=== PATIENT | female | born 1985 | race Caucasian/White ===

== ENCOUNTER 2022-04-23 12:53 | Outpatient (CLI) | payer OTHER, SELFPAY ==
--- NOTE | 2022-04-23 13:00 | CRLHL7_ITS ---
For Patients: As a result of the Cures Act, medical imaging exams and procedure reports are released immediately into your electronic medical record. You may view this report before your referring provider. If you have questions, please contact your health care provider. INDICATION: First trimester scan, establish dates. COMPARISON: None. TECHNIQUE: Real-time pruett-scale imaging of the pelvis was performed. FINDINGS: Sonographic imaging demonstrates a single living intrauterine gestation. The embryo demonstrates a regular cardiac rate measuring 173 beats per minute. The embryo`s crown-rump length measurement of 2.4 cm corresponds to a gestational age of 9 weeks 1 day with a sonographic due date of 11/25/2022. There is a normal-appearing yolk sac. There are no gross abnormalities noted within the embryo at this early state of development. The gestational sac has a normal appearance. There is a 2.7 x 1.7 x 2.9 cm lower uterine segment perigestational hemorrhage. The amount of fluid within the sac appears appropriate for gestational age. The cervix is closed. The myometrium appears normal. The ovaries are of normal size. Simple anechoic cyst right ovary measuring 2.9 x 2.3 x 2.7 cm there are no suspicious fluid collections noted in the cul-de-sac. IMPRESSION: Single living intrauterine with sonographic gestational age 9 weeks 1 day and sonographic due date of 11/25/2022. Lower uterine segment subchorionic hemorrhage measuring 2.7 x 1.7 x 2.9 cm. Dictated by Flex Davis MD @ 04/23/2022 1:53:20 PM (Electronically Signed)
== END 2022-04-23 12:54 | disposition home or self-care (01) ==
LOC: US 12:55
PROVIDERS: PCP Obstetrics & Gynecology; Visit Provider Physician Assistant
DX: Z34.91 Encounter for supervision of normal pregnancy, unspecified, first trimester (principal)
CPT/HCPCS: 76817; 86592; 86703; 86762; 86803; 86850; 86900; 86901; 87086; 87340; 87491; 87591

== ENCOUNTER 2022-07-14 12:47 | Outpatient (CLI) | payer OTHER, SELFPAY ==
--- OUTSIDE RECORDS SUMMARY | 2022-07-14 12:50 | XMS_ITS | Clinical Summary ---
:1985 Author Organization [employer] [facility] [place] [address] Care Team Providers Name Role Phone Pcp, No Primary Care Provider Unavailable Allergies No known active allergies Medications Medication Sig Dispensed Refills Start Date End Date Status RECLIPSEN, 28, 0.15-0.03 TAKE 1 TABLET BY 84 tablet 0 03/22/20 16 Active mg tabletIndications: MOUTH DAILY Contraception Active Problems No known active problems Encounters Date Type Specialty Care Team Description 04/26/2022 Lab Requisition Sultana Guillaume PA-C from Last 3 Months Immunizations Name Administration Dates Next Due Human Papilloma Virus Vaccine 02/14/2014, 01/04/2013, 2011 Td (Age >=7 Years) 11/17/1999 Tdap 12/18/2009 Family History Medical History Relation Name Comments Good Health Father Good Health Mother Diabetes Other GRANDPARENT Heart Disease Other GRANDPARENT Hypertension Other GRANDPARENT Relation Name Status Comments Father Mother Other Social History Tobacco Use Types Packs/Day Years Used Date Smoking Tobacco: Never Smokeless Tobacco: Never Tobacco Cessation: Counseling Given: Yes Alcohol Use Standard Drinks/Week Comments Yes 0 (1 standard drink = 0.6 oz pure alcoho l) rarely Sex Assigned at Date Recorded Not on file Obstetrics History Para Term AB IAB SAB Ectopic Multiple Living Live Births 0 0 0 0 0 0 0 0 0 0 Last Filed Vital Signs Vital Sign Reading Time Taken Comments Blood Pressure 120/74 02/20/2015 4:29 PM CDT tower Pulse 77 02/20/2015 4:29 PM CDT Temperature - - Respiratory Rate - - Oxygen Saturation 99% 02/20/2015 4:29 PM CDT Inhaled Oxygen Concentration - - Weight 60.1 kg (132 lb 9.6 oz) 02/20/2015 4:29 PM CDT Height 151.5 cm (4' 11.65) 02/20/2015 4:29 PM CDT Body Mass Index 26.2 02/20/2015 4:29 PM CDT Plan of Treatment Health Maintenance Due Date Last Done Comments COVID-19 vaccine series (#1) 03/01/1988 Depression screening for age 12+ 1999 HIV for age 15-65 2002 BMI (ht and wt on same day) for 2005 age 18+ Hepatitis C screening for age 0209/01/2005 18-79 Tetanus booster 12/19/2019 12/18/2009, 11/17/1999 Influenza for age 9-49 04/01/2022 Pap test for age 21-65 04/23/2025 04/23/2022, 04/23/2022, 08/26/2017, Additional history exists Tdap Completed 12/18/2009 Procedures Procedure Name Priority Date/Time Associated Diagnosis Comme nts LAB TRACKING EVENT Routine 04/23/2022 2:30 PM CDT [employer] THIN PREP PAP Routine 04/23/2022 2:30 PM Resu lts for this SCREEN IMAGED CDT procedure are in the results section. HPV THIN PREP Routine 04/23/2022 2:30 PM Results for this CDT procedure are i n the results section. from Last 3 Months Results LAB TRACKING EVENT (04/23/2022 2:30 PM CDT) Specimen Anatomical Collection Method Collection Time Receive d Time (Source) Location / / Volume Laterality Other (Other) Client Collect / 04/23/2022 2:30 PM 04/02 5:46 Unknown CDT PM CDT October Aundrea [facility] BILL ONLY Performing Organization Address City/State/ZIP Code Phon e Number [employer] [address] [place] [address] LABORATORY-CENTRAL 1999 LABORATORY [employer] THIN PREP PAP SCREEN IMAGED (04/23/2022 2:30 PM CDT) Component Value Ref Test Analysis Performed At [facility] Range Method Time Signature Case Report Gynecologic Cytology Report ? Case: [id number] ? 05/13/2022 ELISABET Authorizing Provider: ??Sultana Kapoor PA-C ?Collected: ? 04/23/2022 1430 ? 1:36 PM HEALTH Ordering Location: ? [facility] ?Received: ?04/27/2022 0823 ? CDT [place] NEO-C First Screen: ? Cassius Sarabia ? ENTRAL Rescreen: ?Lillian Lisa ? LABORATORY Specimen: ?[employer] ThinPrep Vial Screening, Cervical ? INTERPRETATION NEGATIVE FOR (none) 05/13/2022 [facility] E lectronically /RESULT INTRAEPITHELIAL 1:36 PM HEALTH sign ed by [facility]ESION OR CDT LABORATORY-C Lillian Lisa on MALIGNANCY (NIL) ENTRAL at LABORATORY 1:36 PM SPECIMEN Satisfactory for evaluation 05/13/2022 [facility] ADEQUACY No endocervical component seen in a patient 1:36 PM HEALTH CDT LABORATORY-C ENTRAL LABORATORY HPV REQUEST HPV and PAP 05/13/2022 [facility] 1:36 PM HEALTH CDT LABORATORY-C ENTRAL LABORATORY Date of LMP 02/22/2022 05/13/2022 [facility] 1:36 PM HEALTH CDT LABORATORY-C ENTRAL LABORATORY Last Pap Date 08/26/2017 05/13/2022 [facility] 1:36 PM HEALTH CDT LABORATORY-C ENTRAL LABORATORY Last Pap NIL 05/13/2022 [facility] Result 1:36 PM HEALTH CDT LABORATORY-C ENTRAL LABORATORY Abnormal Pap No 05/13/2022 [facility] or [place] B[facility] in 1:36 PM HEALTH last 5 years CDT LABORATORY-C ENTRAL LABORATORY Menstrual 05/13/2022 [facility] Status 1:36 PM HEALTH CDT LABORATORY-C ENTRAL LABORATORY [place] B[place] Done No 05/13/2022 [facility] Today 1:36 PM HEALTH CDT LABORATORY-C ENTRAL LABORATORY Additional 05/13/2022 [facility] Information 1:36 PM HEALTH CDT LABORATORY-C ENTRAL LABORATORY Comment: Interpreted at [facility], Central Laboratory - [address], [place] [address] Automated Review Successful 05/13/2022 1:36 PM CDT [facility] LABORATORY-CENTRAL L ABORATORY Comment: Specimen processed successfully by automated investigation division captain device, [employer]Prep Imaging System, [employer] ANCILLARY TESTING HPV Ordered, 05/13/2022 1:36 PM [facility] INSPECTOR [employer] COMMODITIES Please see CDT LABORATORY-CENTRAL separate report LABORATORY Note The pap test is a 05/13/2022 1:36 PM [facility] screening CDT LABORATORY-CENTRAL technique, not a LABORATORY diagnostic procedure. It is used primarily to screen for squamous cancers and precursor lesions. Published studies have shown that it is subject to both false negative and false positive results. The pap test should not be used as the sole means to diagnose or exclude pre-malignant and malignant lesions. Specimen Anatomical Collection Method Collection Time Receive d Time (Source) Location / / Volume Laterality Other (Cervical) 04/23/2022 2:30 PM 04/27 8:23 CDT AM CDT Sultana L Aundrea [facility] Performing Organization Address City/State/ZIP Code Phon e Number [facility] [address] [place] [address] LABORATORY-CENTRAL 2000 LABORATORY HPV HIGH RISK (04/23/2022 2:30 PM CDT) Analysis Performed At Patho logist Time Signature TYPE 16 Negative Negative 04/28/2022 [facility] 2:07 PM CDT LABORATORY-[place] TRAL LABORATORY TYPE 18 Negative Negative 04/28/2022 [facility] 2:07 PM CDT LABORATORY-[place] TR[place] LABORATORY OTHER HIGH Negative Negative 04/28/2022 [facility] RISK TYPES 2:07 PM CDT LABORATORY-[place] TR[place] LABORATORY Specimen Anatomical Collection Method Collection Time Receive d Time (Source) Location / / Volume Laterality Other (Cervical) 04/23/2022 2:30 PM 04/27 8:23 CDT AM CDT Narrative [facility] LABORATORY-CENTRAL LABORAT ORY - 04/28/2022 2:07 PM CDT HPV types 16, 18, 31, 33, 35, 39, 45, 51, 52, 56, 58, 59, 66 and 68 DNA were undetectable or below the pre-set threshold. Methodology: Brenda Dalia 4800 HPV Test October Aundrea [facility] Performing Organization Address City/State/ZIP Code Phon e Number [facility] [address] [place] [address] LABORATORY-CENTRAL 2000 LABORATORY from Last 3 Months Care Teams Operations Program Manager Relationship Specialty Start Date End Date Pcp, No PCP - General 07/07/18 .
== END 2022-07-14 12:48 | disposition home or self-care (01) ==
LOC: US 12:48
PROVIDERS: PCP Obstetrics & Gynecology; Visit Provider Pediatrics Neonatal-Perinatal Medicine
DX: O09.522 Supervision of elderly multigravida, second trimester (principal); Z3A.20 20 weeks gestation of pregnancy
CPT/HCPCS: 76811

== ENCOUNTER 2022-08-25 18:05 | Outpatient (CLI) | payer OTHER, SELFPAY ==
[2022-08-25 18:13] VITALS: BP 133/91; PULSE 130; RESP 18; TEMP 36.7; O2SAT 99; BMI 35.9
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
[2022-08-25 20:02] VITALS: BP 130/70; PULSE 97
[2022-08-25 23:36] VITALS: BP 130/70; PULSE 97; RESP 18; TEMP 36.8
== END 2022-08-25 23:10 | disposition home or self-care (01) ==
LOC: ED 19:48 → OB OUT 19:49 → OB 19:50
PROVIDERS: Emergency Provider Emergency Medicine Emergency Medical Services; PCP Obstetrics & Gynecology; Visit Provider Obstetrics & Gynecology
DX: Z34.92 Encounter for supervision of normal pregnancy, unspecified, second trimester (principal); Z3A.26 26 weeks gestation of pregnancy
CPT/HCPCS: 59025; 99213; 99284

== ENCOUNTER 2022-09-06 15:49 | Outpatient (CLI) | payer OTHER, SELFPAY ==
[2022-09-08 00:33] LABS: Rapid Plasma Reagin (RPR) Non Reactive (Non Reactive)
== END 2022-09-06 15:50 | disposition home or self-care (01) ==
PROVIDERS: PCP Obstetrics & Gynecology; Visit Provider Obstetrics & Gynecology
DX: Z34.93 Encounter for supervision of normal pregnancy, unspecified, third trimester (principal); Z3A.28 28 weeks gestation of pregnancy
CPT/HCPCS: 86592

== ENCOUNTER 2022-11-04 08:55 | Outpatient (CLI) | payer OTHER, SELFPAY ==
[2022-11-05 11:50] LABS: Strep B DNA Probe NEGATIVE (Negative)
[2022-11-05 16:21] LABS: Strep B Pen/Amox Allergy No
== END 2022-11-04 08:56 | disposition home or self-care (01) ==
PROVIDERS: PCP Obstetrics & Gynecology; Visit Provider Obstetrics & Gynecology
DX: Z34.93 Encounter for supervision of normal pregnancy, unspecified, third trimester (principal); Z3A.36 36 weeks gestation of pregnancy
CPT/HCPCS: 87081; 87653

== ENCOUNTER 2022-11-22 05:13 | Inpatient (IN) | payer OTHER, SELFPAY ==
[2022-11-22] VITALS (32 sets, daily range): BP systolic 105–136; BP diastolic 54–80; PULSE 68–108; RESP 15–18; TEMP 36.4–37.2; O2SAT 95–99; BMI 40.0
[2022-11-22] MEDS: LACTATED RINGERS 1000 ML 1,000 ML 1200 ML IV (05:57)
[2022-11-22 06:35] LABS: SARS PCR* Negative SARS-CoV-2 (Negative)
[2022-11-22] MEDS: LACTATED RINGERS 1000 ML 1,000 ML 125 ML IV ×2 (06:38→11:10)
--- NOTE | 2022-11-22 07:18 | PM.PROC ---
Procedure Note Time Seen by Provider: 07:18 Date Seen: 11/22/22 Date of procedure: 11/22/22 Will [facility] bill your pro fee for this procedure?: Yes Procedure: Preoperative diagnosis: 37-year-old 3 para 2001 at 39 and 0/7 weeks admitted for a 1. Scheduled repeat low transverse section. 2. Undesired fertility Postoperative diagnosis: Same Procedure: Repeat low-transverse section. Bilateral Salpingectomy Anesthesia: Spinal,TAPS block Surgeon: Verna Dominguez MD Cardiovascular Technician: Not applicable Quantitative blood loss: 590 mL IVF: 1700 mL UOP: 200 mL, clear urine at the end of the procedure Drain(s): Calhoun to gravity Specimen: Right and left fallopian tubes to pathology Findings: A live female infant was delivered from the direct OA position at 7:51 a.m.. Apgars were 9 at 1 min and 9 at 5 min., respectively. Infant weight: Pending. Nuchal cord(s): Yes: Loose nuchal cord easily reduced at the surgical site prior to delivery of the infant's shoulders. The placenta was delivered spontaneously and complete at 7:53 a.m.. Amniotic fluid: Clear. Normal uterus, fallopian tubes and ovaries were noted. Other findings: Thick adhesion of the rectus abdominus muscle to the anterior upper uterus that was doubly clamped, divided and suture-ligated. Procedure: Su was taken to the OR where spinal anesthetic was found be adequate. A Calhoun catheter was placed. The patient was then placed in the dorsal supine position with a leftward tilt. She was then prepped and draped in a normal sterile manner. A Pfannenstiel skin incision was made and carried through sharply to the underlying layer of fascia. Fascia was incised in the midline and this incision carried laterally with Ricks scissors. The superior aspect of fascial incision was grasped with Tomer clamps, tented up, and the rectus muscles dissected off minimally with a combination of blunt and sharp dissection. The inferior aspect of the fascial incision was not dissected off the rectus muscles. The rectus muscles were in the midline. The peritoneum was entered sharply. This opening was extended in layers with Ricks scissors with good visualization of the bladder. The thick adhesion of the rectus abdominus muscle to the anterior upper portion of the uterus was identified, doubly clamped with Ele clamps, divided and ligated with 0 Vicryl free ties. An Berry-O self-retaining retractor was placed. A bladder flap was not created. Uterus was incised in a low transverse manner in the midline. This incision carried laterally with blunt pressure on the inferior and superior aspects of the uterine incision. The amniotic sac was ruptured. The infant's head and body was delivered atraumatically. The was shown to the patient and her support person, then handed to waiting nursing staff. The placenta was delivered spontaneously. The uterus was cleared of clots and debris. The uterine incision was re-approximated with the uterus in vivo. The 1st layer using 0-Vicryl in a running, locked manner. The 2nd layer using 0-Monocryl in a running, vertical, imbricating layer. Additional sutures needed for hemostasis: Yes: 1 figure of 8 suture using 2-0 chromic was placed. Attention was then turned to performing the bilateral salpingectomy. The uterus was exteriorized to visualize fallopian tubes and ovaries.The right fallopian tube was identified, grasped with 2 Crocheron clamps and followed to the fimbriated end of the fallopian tube. The hand-held LigaSure dissecting forceps was used to remove the fallopian tube from the cornua and broad ligament by sequential pedicles. The pedicles were started at the fimbriated end of the tube and extended toward the cornua. The fallopian tube was amputated from the cornual a and sent to pathology. Hemostasis of the pedicles was obtained using bipolar cautery and a DeBakey forceps. The left fallopian tube was then identified, grasped with 2 Yosi clamps and removed in the same manner as the right fallopian tube. All pedicles were visualized and hemostasis obtained using bipolar cautery with a DeBakey clamp. The uterine incision was reinspected and noted to be hemostatic. Lynsey was applied to the uterine incision and excellent hemostasis was confirmed. The Berry retractor was removed. The rectus muscles were reapproximated using 3-0 Vicryl vertical mattress sutures. The rectus muscles were then closely inspected to verify hemostasis. Hemostasis was obtained with bipolar cautery. The fascia was then reapproximated using 0-Maxon loop in a running manner. The subcutaneous tissue was then irrigated with saline and hemostasis obtained with bipolar cautery. The subcutaneous tissue was reapproximated using 3-0 plain gut interrupted sutures. The skin was reapproximated using 4-0 Monocryl in a running subcuticular manner. Exophin skin adhesive and a Methaplex dressing were applied. The patient tolerated this procedure well. Sponge, lap and instrument counts were correct x2 active to the procedure. Patient was taken to the recovery area in stable condition. The patient received 2 g of IV Ancef prior to skin incision. She received 30 mg IV Toradol at the end of the procedure. TAPS block was placed after the procedure was concluded.
[2022-11-22 07:25] LABS: Basophils Absolute Auto 0.06 K/uL (0.00-0.30); Basophils Percent Auto 0.6 % (0.0-3.0); Eosinophils Absolute Auto 0.11 K/uL (0.00-0.50); Eosinophils Percent Auto 1.1 % (0.0-7.0); Hematocrit 39.4 % (33.0-51.0); Hemoglobin* 13.2 gm/dL (12.0-16.0); Immature Granulocytes Abs Auto 0.08 K/uL (0.00-0.30); Immature Granulocytes Pct Auto 0.8 %; Lymphocytes Absolute Auto 2.19 K/uL (0.90-2.90); Lymphocytes Percent Auto 21.6 % (20-44); Mean Corpuscular HGB Conc 34 gm/dL (32-36); Mean Corpuscular Hemoglobin 30 pg (26-34); Mean Corpuscular Volume 90 fL (80-100); Monocytes Percent Auto 8.9 % (0.0-11.0); Neutrophils Absolute Auto 6.78 K/uL (1.7-7.0); Platelet Count* 285 K/uL (140-440); RDW Coefficient of Variation % 14.5 % (11.5-15.5); Red Blood Count 4.38 m/uL (4.00-5.20); White Blood Count* 10.12 K/uL (4.50-11.00)
[2022-11-22 07:29] LABS: Slide Review Reflex No
[2022-11-22] MEDS: CEFAZOLIN 2 GM INJ IVP (07:29)
--- NOTE | 2022-11-22 08:22 | SUR.OPER ---
PATIENT QUESTIONS ANSWERED SATISFACTORILY PREOPERATIVELY.? PATIENT BROUGHT TO OR #5 BY AMBULATION.? Patient positioned supine on OR #5 bed.? The perioperative?team supported arms bilaterally on arm boards.? Final approval of positioning by surgeon.
--- NOTE | 2022-11-22 08:32 | SUR.OPER ---
TIME OUT PRIOR TO BILATERAL T.A.P. BLOCKS PERFORMED AT 08:32.
--- NOTE | 2022-11-22 08:36 | W.PM.LDBA ---
Subjective History of Present Illness Time Seen by Provider: 07:12 Date Seen: 11/22/22 Narrative: Su is being admitted to Labor and Delivery for scheduled repeat section and bilateral salpingectomy. She is a 37 year old at 39 and 0/7 weeks gestation. Her full history and physical was dictated by Dr. Verna Dominguez MD on 11/04/2022. Please see this for details. OB - Problem Based A/P Additional Plan (1) Status post repeat low transverse section: Status: Acute Plan 1. Consent form reviewed, signed on 11/04/2022. OB Exam Physical Exam Vital signs: Temp Pulse Resp BP Pulse Ox 98.9 F 108 H 18 136/75 96 11/22/22 05:39 11/22/22 05:43 11/22/22 05:39 11/22/22 05:43 11/22/22 05:41 Narrative: GENERAL APPEARANCE: Pleasant, , well-groomed woman in no acute distress. VITAL SIGNS: as noted in nursing notes HEAD: Normocephalic, atraumatic. LUNGS: Clear to auscultation bilaterally without wheezes, rales or rhonchi. HEART: Regular rate and rhythm with normal S1 and S2. No gallop, rub or murmur. ABDOMEN: Gravid. Soft, nontender, nondistended, with normal bowels sounds throughout. EXTREMITIES: No cyanosis, clubbing, or edema. No varicosities. NEUROLOGIC: Normal gait and balance. Normal deep tendon reflexes at bilateral patella 2+/2, equal without clonus. PSYCHIATRIC: alert and oriented x3. Normal speech pattern, eye contact and affect. SKIN: Warm, dry, and well perfused. Good turgor. No lesions, nodules or rashes.
--- NOTE | 2022-11-22 08:51 | W.ANESCHARGE ---
Anesthesia Charges Start Date/Time Anesthesia Start Date: 11/22/22 Anesthesia Start Time: 07:21 Stop Date/Time Anesthesia Stop Date: 11/22/22 Anesthesia Stop Time: 08:44
--- NOTE | 2022-11-22 09:04 | W.ANESCHARGE ---
Anesthesia Charges Start Date/Time Anesthesia Start Date: 11/22/22 Anesthesia Start Time: 07:21 Stop Date/Time Anesthesia Stop Date: 11/22/22 Anesthesia Stop Time: 08:44
--- NOTE | 2022-11-22 09:06 | W.ANESCHARGE ---
Anesthesia Charges Start Date/Time Anesthesia Start Date: 11/22/22 Anesthesia Start Time: 07:21 Stop Date/Time Anesthesia Stop Date: 11/22/22 Anesthesia Stop Time: 08:44
--- NOTE | 2022-11-22 09:07 | W.PM.NB ---
Nerve Block Nerve Block Time Seen by Provider: 08:34 Date Seen: 11/22/22 Type of block requested by surgeon for post-operative analgesia: TAP Side: bilateral Time out performed: Yes Verification of patient name: Yes Verification of date of : Yes Site marking: site marked Name of person performing procedure: Bony Continuous monitoring Was continuous monitoring of O2 sat, B/P, surveillance monitor, recorded every 15 minutes?: Yes Procedure Checklist: sterile prep, needles and gloves Ultrasound guided. Images saved: Yes Medications given in 5ml increments after negative aspiration: Marcaine %: 0.25 mL: 30 Needle gauge: 20 and Exparel mL: 10 Patient tolerated procedure well: Yes Additional comments: Needle noted adjacent to nerve Block Charges Block Charge (with Pro Fee): TAP Bilateral Use of Ultrasound Machine for Block: Yes- US Guidance/pain block
[2022-11-22] MEDS: SODIUM CHLORIDE 0.9 % (FLUSH) 10 ML SYRINGE IVF (14:37)
[2022-11-22] MEDS: KETOROLAC 30 MG/ML inj IVP ×2 (14:37→20:48)
[2022-11-23] VITALS (13 sets, daily range): BP systolic 112–141; BP diastolic 73–87; PULSE 70–90; RESP 16; TEMP 36.4–36.9; O2SAT 95–97
[2022-11-23] MEDS: KETOROLAC 30 MG/ML inj IVP ×3 (02:12→14:50)
[2022-11-23 05:26] LABS: Hemoglobin* 11.3 gm/dL (12.0-16.0)
--- NOTE | 2022-11-23 07:56 | PM.OBPNCS1 ---
OB - PN: A/P Assessment and Plan (1) Status post repeat low transverse section: Status: Acute Plan day: 1 Plan: routine postop care Comments: Assessment/Plan G 3 P 3 status post uncomplicated repeat . 1. ?Continue route PP cares 2. ?. ?May see if desired 3. ?Anticipate discharge home tomorrow or the following day per pt preference OB - PN: Subj Subjective Time Seen by Provider: 07:56 Date Seen: 11/23/22 Interval history: Su is a 37 y.o. who was admitted to [facility] for repeat . ?She had an uncomplicated . ? Patient comments: no complaints and pain well controlled Daisy infant status: and doing well Narrative: The patient feels well. ?The pain is well controlled with current medications. ?She has no new complaints. ?She is breast feeding and reports things are going well.? the patient has done well.? Vitals have been stable.? She has remained afebrile.? Has a good appetite, is tolerating a general diet. ?She is voiding without difficulty.? She is passing gas and has not had a bowel movement.? She is ambulating and denies any dizziness.? Has Small amount of rubra lochia. OB - PN: Obj Exam Physical Exam: Vital signs: Temp Pulse Resp BP Pulse Ox O2 Del Method 97.9 F 81 16 115/77 97 Room Air 11/23/22 06:00 11/23/22 06:00 11/23/22 06:21 11/23/22 06:00 11/23/22 06:00 11/23/22 06:00 Narrative: VSS. Afebrile GENERAL APPEARANCE: ?normal affect, alert, no distress MOOD: ?appropriate HEENT: normocephalic, neck supple, full ROM CHEST: ?Symmetrical chest wall movement. ?Normal respiratory effort. ?Clear to auscultation HEART: ?regular rate and rhythm ABDOMEN: ?soft, non-tender. Uterine fundus is firm, at Umbilicus, Midline and is appropriate for the stage of recovery. ?Bowel sounds present. EXTREMITIES: ?normal and trace edema SKIN: warm, dry. Dressing on, clean/dry/intact No signs of infection noted. OB - PN: Obj Data Labs Labs: Laboratory Results - last 24 hr 11/23/22 05:20 Hgb 11.3 L
[2022-11-23] MEDS: DOCUSATE SODIUM 100 MG CAPSULE PO (08:09)
[2022-11-23 16:56] LABS: Hematocrit 34.8 % (33.0-51.0); Hemoglobin* 11.7 gm/dL (12.0-16.0); Mean Corpuscular HGB Conc 34 gm/dL (32-36); Mean Corpuscular Hemoglobin 31 pg (26-34); Mean Corpuscular Volume 92 fL (80-100); Platelet Count* 258 K/uL (140-440); Red Blood Count 3.77 m/uL (4.00-5.20); White Blood Count* 10.46 K/uL (4.50-11.00)
[2022-11-23 17:01] LABS: Slide Review Reflex No
[2022-11-23 17:04] LABS: Creatinine* 0.6 mg/dL (0.5-1.5); Estimated Glomerular Filt Rate 120 ml/min
[2022-11-23 17:05] LABS: Alanine Aminotransferase* 18 U/L (4-35); Aspartate Amino Transferase* 33 U/L (12-35); Blood Urea Nitrogen* 10 mg/dL (5-24)
[2022-11-23] MEDS: IBUPROFEN 600 MG TABLET PO (20:13)
[2022-11-23] MEDS: ACETAMINOPHEN 500 MG TABLET 1000 MG PO (23:12)
[2022-11-24 04:12] VITALS: BP 132/82; PULSE 80; RESP 16; TEMP 36.8; O2SAT 97
[2022-11-24] MEDS: IBUPROFEN 600 MG TABLET PO (04:21)
--- NOTE | 2022-11-24 07:40 | P.DS_ITS ---
DS: Providers Provider Date Seen: 11/24/22 Date of admission: 11/22/22 05:13 Primary care physician: Verna Dominguez MD Admitting Clinician: Verna Dominguez MD Attending Physician on discharge: Verna Dominguez MD Date of Discharge: 11/24/22 DS: Diagnosis Discharge Diagnosis (1) Status post repeat low transverse section: Status: Acute (2) Status post bilateral salpingectomy: Status: Acute (3) Lactating mother: Status: Acute Exam Narrative: Exam Narrative: GENERAL APPEARANCE:? normal affect, alert, no distress? MOOD:? appropriate? CHEST:? clear to auscultation and percussion? HEART:? regular rate and rhythm? ABDOMEN:? soft, non-tender the uterine fundus is 1 cm Below Umbilicus, Midline and is appropriate for the stage of recovery. Incision well approximated without edema, redness, warmth, or drainage. Glue closure intact.? EXTREMITIES:? normal and no edema? Patient has no complaints? No active bleeding?? Doing well? She is requesting discharge home.? Const: Vital Signs, click to edit/add: Vital Signs - 24 hr 11/23/22 08:00 11/23/22 15:20 11/23/22 16:23 Temperature 97.6 F 98.2 F Pulse Rate [Pulse Oximeter] 70 87 Respiratory Rate 16 16 Blood Pressure [Ri ght Arm] 112/77 139/81 141/87 H Pulse Oximetry 95 95 Oxygen Delivery Me thod Room Air Room Air 11/23/22 20:27 11/23/22 23:21 11/24/22 04:12 Temperature 98.3 F 98 F 98.2 F Pulse Rate [Pulse Oximeter] 83 74 80 Respiratory Rate 16 16 16 Blood Pressure [Ri ght Arm] 126/77 120/73 132/82 Pulse Oximetry 96 96 97 Oxygen Delivery Me thod Room Air Room Air Room Air Documenting provider has reviewed patient's vital signs: yes DS: Data Data Completed and Pending Labs on day of discharge: Labs from last 24 hours 11/23/22 16:45 WBC 10.46 RBC 3.77 L Hgb 11.7 L Hct 34.8 MCV 92 MCH 31 MCHC 34 Plt Count 258 BUN 10 Creatinine 0.6 Estimated Creat Clear 94.00 Estimated GFR 120 AST 33 ALT 18 OB - DS: Summary Hospital Course Hospital Course: Patient is a 37year old, G 3 now P 3? admitted on 11/22/22 at 39 Weeks, 0 Days gestation for repeat section.? She had an uncomplicated delivery.? She delivered a viable female .? She is breast feeding and reports things are well.? the patient has done well.? Her pain is well controlled with current medications.? She has no new complaints.? Vitals have been stable. She has remained afebrile. She is voiding without difficulty. She is passing gas and has not had a bowel movement. She is ambulating and denies any dizziness. She had a bilateral tubal ligation for control. She is requesting discharge today. Peripartum Data Procedures: Procedures Operation Date: 11/22/22 07:15 Actual Procedure Side Surgeon p Repeat Section, Bilateral Salpingectomy Bilateral Verna Pedraza MD complications: none Infant Gender: Female Infant Discharge Plan: Home Status at Discharge Functional status at discharge: independent ambulation Overall status at discharge: patient is progressing back to baseline Time Spent with Patient Time attestation: Total time spent providing and/or coordinating discharge services: Discharge Plan Discharge Disposition: Home, Self-Care Date of Admission: 11/22/22 05:13 Primary Care Provider: Verna Dominguez Condition: Stable Anticipated Discharge Date/Time: 11/24/22 10:00 Discharge Medications: New docusate sodium 100 mg Capsule 100 mg PO BID PRNQty: 90 0RF Rx Instructions: Take 1-2 tablets daily as needed for constipation. ibuprofen 600 mg Tablet 600 mg PO Q6H PRN (Reason: Pain) Qty: 60 0RF oxycodone 5 mg Tablet 5 - 10 mg PO Q4H PRN (Reason: Pain) Qty: 5 0RF Continued DHA 200 mg capsule See Rx Instructions PO .COMPLEX Rx Instructions: orally; calcium carbonate 500 mg calcium (1,250 mg) tablet,chewable 500 mg PO QDAY famotidine [Acid Livestock Farmworker (famotidine)] 20 mg tablet 20 mg PO QDAY Discontinued ferrous sulfate [Feosol] 325 mg (65 mg iron) tablet 325 mg PO QDAY Discharge Orders: Discharge Order (Routine); Ordered 11/24/22 Ordered By: Nery Cao Additional Instructions: Discharge instructions were reviewed with the patient including signs and symptoms of infection and home going medications? ?? Activity restrictions:? Lifting Restrictions: 20 pounds for 6 weeks? No high-impact or core exercises for 6 weeks.?? No not submerge incision under water X 2 weeks?? Nothing vaginally for 6 weeks: no tampons or intercourse? Do not drive while taking narcotic pain medication(s)? Off Work or School for 8 weeks? ?? Symptoms to report to doctor:? -Bleeding that saturates more than one pad per hour? -Passing clots larger than the size of a golf ball? -Pain not relieved by prescribed medication? -Fever above 100.4 degrees Fahrenheit? -A foul vaginal odor? -Difficulty in emotions, mood and functions? -Thoughts of hurting yourself and/or ? -Painful, reddened area in your breast? -Any drainage, redness or tenderness in your IV/epidural site? -Severe headache that doesn't improve after taking medications? -Changes in vision, including temporary loss of vision, blurred vision, and/or light sensitivity? -Upper abdominal pain (usually under ribs on the right side)? -Decrease in urination or painful, frequent urinating? -Chest pain? -Shortness of breath? -Tenderness or pain with redness and/swelling in the calf(s) of your leg? Follow up visits:?? 1. 1 week visit:? incision check.? 2. 2-week visit: discuss feeding/care concerns, review control options and screen for anxiety/depression.? 3. 6-week visit for an annual exam.? ?? consultation services are available to all mothers and babies for the first year after delivery.? To make an appointment, please call [phone].? Follow Up Appointments: [facility] [Provider Group] Verna Dominguez MD [Primary Care Provider] - Forms: [employer] Info Instructions
[2022-11-24 09:00] VITALS: BP 122/77; PULSE 91; RESP 16; TEMP 36.4; O2SAT 96
[2022-11-24] MEDS: DOCUSATE SODIUM 100 MG CAPSULE PO (09:15)
[2022-11-24] MEDS: ACETAMINOPHEN 500 MG TABLET 1000 MG PO (09:15)
[2022-11-24] MEDS: OXYCODONE 5 MG TABLET PO (09:16)
== END 2022-11-24 11:00 | disposition home or self-care (01) | DRG 785 ==
PROVIDERS: Obstetrics & Gynecology; Admitting Provider Obstetrics & Gynecology; PCP Obstetrics & Gynecology; Visit Provider Obstetrics & Gynecology
PROC: 10D00Z1 Extraction of Products of Conception, Low, Open Approach (ICD-10-PCS; CPT 59514; principal; 2022-11-22 07:15)
DX: O34.211 Maternal care for low transverse scar from previous cesarean delivery (principal); Z30.2 Encounter for sterilization; Z86.32 Personal history of gestational diabetes; O99.214 Obesity complicating childbirth; E66.9 Obesity, unspecified; O99.02 Anemia complicating childbirth; D64.9 Anemia, unspecified; Z3A.39 39 weeks gestation of pregnancy; Z37.0 Single live birth
CPT/HCPCS: 01961; 36415; 76942; 82565; 84450; 84460; 84520; 85018; 85025; 85027; 86850; 86900; 86901; 87635; 88302; A9270; C9290; J0171; J0690; J1100; J1885; J2274; J2370; J2405; J2590; J3490; J7120

== ENCOUNTER 2023-12-09 17:11 | Observation (INO) | payer OTHER, SELFPAY ==
[2023-12-09] VITALS (8 sets, daily range): BP systolic 137–143; BP diastolic 80–94; PULSE 91–120; RESP 16; TEMP 36.7–37.2; O2SAT 93–98; BMI 35.9; BMI 37.2
--- NOTE | 2023-12-09 17:22 | ED.FEVER ---
HPI - Fever General Time Seen by Provider: 17:22 Date Seen: 12/09/23 Chief Complaint: Fever Stated Complaint: fever, cough, sore throat Time Seen by Provider: 12/09/23 17:13 Source: patient and RN notes reviewed Mode of arrival: ambulatory Limitations: no limitations History of Present Illness HPI Narrative: This 38yo female is coming in with about 2 weeks of upper respiratory symptoms, worsening fever again. She has had cough cold symptoms, nasal congestion. About 2 days ago she started with a severe sore throat, had a negative strep in Urgent Care. Her son has strep at home. She has taken 5 doses of Augmentin, initially said she felt a little better but now is worsening. Her fever started to worsen today, up to 102. There is no chance for . She does have a right ear tube in, has had some drainage in the ear has felt a little full. The Augmentin was started in Urgent Care for rhinosinusitis and right ear infection 2 days ago. Discussed with patient that strep would typically be well covered with Augmentin, do not think we need to retest for strep. Likewise, pharyngitis or tonsillitis that is bacterial usually would be covered by Augmentin. Her initial symptoms encompassed nasal congestion, cough, headache and runny nose. She started with right ear pain this week on Tuesday, drainage from that ear as noted. Sore throat really developed for her just 2 days ago. MD elicited complaint: fever Related Data Home Medications Medication Instructions Recorded Confirmed docosahexaenoic acid 200 mg See Rx Instructions PO DAILY 03/17/23 12/07/23 capsule ( DHA) Previous Rx's Medication Instructions Recorded amoxicillin 875 mg-potassium 1 tab PO BID 5 days #10 tabs 12/07/23 clavulanate 125 mg tablet Allergies Allergy/AdvReac Type Severity Reaction Status Date / Time No Known Allergies Allergy Unknown Verified 12/09/23 19:05 Review of Systems Status of ROS Reports: 6 or more systems reviewed and unremarkable except as noted in History and below [facility] Medical History History of gestational diabetes ?Z86.32 - Personal history of gestational diabetes (ICD-10) Surgical History Status post bilateral salpingectomy (11/22/22) ?Z90.79 - Acquired absence of other genital organ(s) (ICD-10) History of low transverse section (06/29/16) ?Z98.891 - History of uterine scar from previous surgery (ICD-10) Family History Family/Other Diabetes Family/Other Stroke Family/Other Coronary artery disease 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 . Non-smoker Smoking Status: Never smoker How often do you have a drink containing alcohol: never How often do you have six or more drinks on one occasion: Never AUDIT-C Alcohol total score: 0 Non-prescribed substance use: denies use Little interest or pleasure in doing things: not at all Feeling down, depressed, or hopeless: not at all Exam Const Vital Signs, click to edit/add: Vital Signs - 24 hr 12/09/23 17:18 12/09/23 17:39 12/09/23 18:01 Temperature 98.9 F Pulse Rate [Pulse Oximeter] 120 H 112 H Respiratory Rate 16 Blood Pressure [Right Upper Arm] 143/94 H Pulse Oximetry 97 97 97 Oxygen Delivery Method Room Air Room Air 12/09/23 18:41 12/09/23 19:32 Temperature Pulse Rate [Pulse Oximeter] 92 110 H Respiratory Rate Blood Pressure [Right Upper Arm] 142/92 H Pulse Oximetry 97 97 Oxygen Delivery Method Room Air Room Air Ban is alert, interactive, no apparent distress but looks like she does not feel well. Pupils are equal round reactive, sclera clear. Symmetrical facial function, voice is hoarse but she is able to speak in complete sentences. Oropharynx well hydrated, no exudates erythema, halitosis is noted. Anterior nares look normal. She has a ear to be in the right tympanic membrane, there is some debris/exudate noted in the ear canal. The tympanic membrane itself does not look red. Left ear canal and tympanic membrane look normal. Neck is supple, no adenopathy. Lungs are clear, good air entry, no wheezing crackles. CV fast but regular, no murmur noted, normal S1-S2, no S3-S4. Skin visualized without rash. Documenting provider has reviewed patient's vital signs: yes Course Course ED Course: This patient is coming in with about 2 weeks of illness, worsening. Need to consider secondary bacterial infections, new infection with either viral or bacterial etiology. She still has upper respiratory symptoms. Do recommend placement of IV with some IV fluids and obtaining labs. Look at portable chest x-ray to start to see if we can see any pneumonia. I would recommend doing the COVID and influenza swab. Reevaluation(s) Time of Reevaluation #1: 18:28 Reevaluation #1: Reviewed with patient that her WBC is elevated, monospot is negative and my preliminary review of her portable CXR is negative. I would recommend that we proceed with CT imaging of her sinuses and neck. She agrees to proceed. Await other labs, would still image if her test is positive for either Covid or influenza. Time of Reevaluation #2: 19:25 Reevaluation #2: Reviewed with Juli that I think she needs IV antibiotics. I do see right frontal and maxillary sinus changes. I do not see any definitive concerning pathology in her soft tissue neck that would require transfer at this time. She is aware that the radiologist still needs to over-read these. I will attempt to talk to ENT on-call as well. Consultations Consultation #1: Have spoken with Dr. Muniz regarding this patient. Agrees with plan for IV antibiotics, steroid dose and recommends antibiotic ear drops given that ear is draining. Recommends ciprodex 4 drops 4x/day for 5 days. Did briefly update him when the sinus CT report was done, he does recommend UA, C ANCA and p-ANCA to rule out Benito's. Time: 19:35 Vital Signs Vital signs: Initial Vital Signs Temperature 98.9 F 12/09/23 17:18 Temperature Source Temporal Artery Scan 12/09/23 17:18 Pulse Rate 120 H 12/09/23 17:18 Respiratory Rate 16 12/09/23 17:18 Blood Pressure 143/94 H 12/09/23 17:18 Blood Pressure Mean 110 H 12/09/23 17:18 Blood Pressure Position Sitting 12/09/23 17:18 Pulse Oximetry 97 12/09/23 17:18 Oxygen Delivery Method Room Air 12/09/23 17:18 Vital Signs Temperature 98.9 F 12/09/23 17:18 Pulse Rate 120 H 12/09/23 17:18 Respiratory Rate 16 12/09/23 17:18 Blood Pressure 143/94 H 12/09/23 17:18 Pulse Oximetry 97 12/09/23 17:18 Oxygen Delivery Method Room Air 12/09/23 17:18 Temperature 98.9 F 12/09/23 17:18 Pulse Rate 110 H 12/09/23 19:32 Respiratory Rate 16 12/09/23 17:18 Blood Pressure 142/92 H 12/09/23 19:32 Pulse Oximetry 97 12/09/23 19:32 Oxygen Delivery Method Room Air 12/09/23 19:32 Medications Administered Medications: Generic Name Dose Route Start Last Admin Trade Name Freq PRN Reason Stop Dose Admin Dexamethasone 10 mg 12/09/23 19:35 12/09/23 19:51 Dexamethasone 10 Mg/Ml Inj IVP 12/09/23 19:36 10 mg ONCE ONE Administration Ampicillin Sodium/Sulbactam 100 mls @ 200 mls/hr 12/09/23 19:35 12/09/23 19:55 Sodium 3 gm/ Sodium Chloride IVPB 12/09/23 19:36 200 mls/hr ONCE ONE Administration Discontinued Medications Generic Name Dose Route Start Last Admin Trade Name Freq PRN Reason Stop Dose Admin Sodium Chloride 1,000 mls @ 500 mls/hr 12/09/23 17:39 12/09/23 18:54 0.9 % Sodium Chloride 1000 Ml IV 12/09/23 19:38 Infused .Q2H YARA Infusion MDM - Fever Lab Data Attestation: I reviewed the patient's lab results. Labs: Lab Results 12/09/23 12/09/23 12/09/23 Range/Units 17:34 17:49 17:53 WBC 13.92 H (4.50-11.00) K/uL RBC 4.20 (4.00-5.20) m/uL Hgb 12.1 (12.0-16.0) gm/dL Hct 36.4 (33.0-51.0) % MCV 87 (80-100) fL MCH 29 (26-34) pg MCHC 33 (32-36) gm/dL RDW Coeff of [place] 12.3 (11.5-15.5) % Plt Count 400 (140-440) K/uL Neut % (Auto) 79.8 H (42.0-72.0) % Lymph % (Auto) 10.3 L (20-44) % Ballard % (Auto) 8.9 (0.0-11.0) % Eos % (Auto) 0.4 (0.0-7.0) % Baso % (Auto) 0.2 (0.0-3.0) % Neut # (Auto) 11.10 H (1.7-7.0) K/uL Lymph # (Auto) 1.40 (0.90-2.90) K/uL Ballard # (Auto) 1.20 H (0.00-0.90) K/UL Eos # (Auto) 0.10 (0.00-0.50) K/uL Baso # (Auto) 0.00 (0.00-0.30) K/uL Abs Immat Gran (auto) 0.10 (0.00-0.30) K/uL Imm/Tot Granulo (auto) 0.4 % Sodium 137 (135-149) mmol/L Potassium 3.2 L (3.6-5.1) mmol/L Chloride 106 (96-114) mmol/L Carbon Dioxide 23 (20-32) mmol/L Anion Gap 8 (7-15) mEq/L BUN 10 (5-24) mg/dL Creatinine 0.6 (0.5-1.5) mg/dL Estimated Creat Clear 97.81 Estimated GFR 119 ml/min Glucose 101 (60-115) mg/dL Lactate 0.9 (0.5-1.9) mmol/L Calcium 8.8 (8.4-10.6) mg/dL C-Reactive Protein 13.4 H (0.5-1.0) mg/dL SARS-CoV-2 (PCR) Negative SARS-CoV-2 (Negative) Monoscreen Negative (Negative) Influenza Type A (PCR) Negative PCR FLU A (Negative) Influenza Type B (PCR) Negative PCR FLU B (Negative) Lab Acknowledgement Test Added Imaging Data Chest x-ray: Attestation: I have reviewed the pertinent imaging results. My impression: I see no evidence of any acute infiltrate or any change consistent with infectious etiology on my preliminary review. Radiologist's impression: Patient: MICKY FLAHERTY Facility:?[facility] Patient ID:?[id number] Site Patient ID:?[id number]. Site :?1985 Study:?XRay-Chest 1 VIEW PORTABLE-12/09/2023 5:57:13 PM Ordering Physician:TAMIR Final Report: Indication: Cough and fever Technique: Frontal chest Comparison: None Findings: Lungs are symmetrically inflated and clear. Trachea is midline. Cardiac silhouette is normal. Bones and soft tissues are unremarkable. Impression: No acute cardiopulmonary findings. Dictated by Adan Lazo MD @ 12/09/2023 6:22:24 PM (Electronic Signature) CT sinuses: Attestation: I have reviewed the pertinent imaging results. My impression: IA did see for right-sided sinusitis changes, opacification of the right frontal and maxillary sinuses for sure on my preliminary review. Radiologist's impression: Patient: MICKY FLAHERTY Facility:?[facility] Patient ID:?[id number] Site Patient ID:?[id number]. Site :?1985 Study:?CT-Sinus WITHOUT-12/09/2023 7:13:06 PM Ordering Physician:TAMIR Final Report: CLINICAL HISTORY: Fever. Respiratory distress. TECHNIQUE: CT of the paranasal sinuses without contrast. COMPARISON: None. FINDINGS: Anterior sinus group (frontal sinuses and anterior ethmoid air cells/frontoethmoidal recesses: Moderate mucosal thickening right frontal sinus. Near-complete opacification of the right-sided anterior ethmoid air cells from pooled secretions and mucosal thickening. Resulting obstruction of the right-sided frontoethmoidal drainage pathway. Left frontal sinus is well aerated. High-grade mucosal thickening within a left anterior ethmoid air cell. Posterior sinus group (posterior ethmoid air cells and sphenoid sinuses)/sphenoethmoidal recesses: Posterior ethmoid air cells and sphenoid sinuses are well aerated. Sphenoethmoidal drainage pathways are not obstructed. Maxillary sinuses and ostiomeatal complexes: Near-complete opacification of the right maxillary sinus with mucosal thickening/frothy secretions. Right maxillary sinus ostium/infundibular outflow tract/hiatus semilunaris (ostiomeatal unit) is obstructed. Mild left maxillary sinus mucosal thickening. Left maxillary sinus ostium/infundibular outflow tract is obstructed. Turbinates: Right middle turbinate maikel bullosa. Nasal septum: Mild leftward nasal septal deviation and septal spur. Nasal cavity: No obstructive lesions. Skullbase, maxilla, TMJ: Keros type 2 on the left. Keros type 2 on the right. No lytic or blastic osseous lesions. No periapical tooth lucencies. Right-sided mastoid effusion. Orbital contents: Within normal limits. Imaged intracranial contents: Within normal limits. Imaged soft tissues structures: Within normal limits. IMPRESSION: 1. Right-sided ostiomeatal unit pattern of obstructive sinus opacification. Moderate right frontal sinus mucosal thickening, near complete opacification of right-sided ethmoid air cells and near-complete opacification of the right maxillary sinus. 2. Obstruction of the left maxillary sinus ostium/infundibular outflow tract with mild left maxillary sinus mucosal thickening. 3. Mild leftward nasal septal deviation and septal spur. 4. Right-sided mastoid effusion. Nonspecific but usually inflammatory/infectious in etiology. Please note that all CT scans at this facility use dose modulation, iterative reconstruction, and/or weight-based dosing when appropriate to reduce radiation dose to as low as reasonably achievable. Dictated by Dominic Sommer MD @ 12/09/2023 7:48:52 PM (Electronic Signature) CT soft tissue neck: Attestation: I have reviewed the pertinent imaging results. My impression: I do see some probable lymphadenopathy but no airway compromise, no abscess on my preliminary review. Radiologist's impression: Patient: MICKY FLAHERTY Facility:?[facility] Patient ID:?[id number] Site Patient ID:?[id number]. Site :?1985 Study:?CT-ST Neck W/ 93CC ISOVUE 370-12/09/2023 7:14:09 PM Ordering Physician:TAMIR Final Report: CLINICAL HISTORY: Fever. TECHNIQUE: CT of the neck with 93 cc of Isovue 370 administered. Multiplanar reformats included. COMPARISON: None. FINDINGS: Mild nasopharyngeal/oropharyngeal mucosal hyperenhancement and submucosal edema. Findings may represent pharyngitis in the appropriate clinical setting. No tonsillar or peritonsillar abscess. Mildly prominent upper cervical lymph nodes, which are likely reactive in etiology. No high-grade airway obstruction. Hypopharynx and larynx are normal. Salivary glands and thyroid gland are normal. Major intracranial vascular structures are patent. No acute osseous abnormalities. Upper lungs are clear. IMPRESSION: 1. Findings compatible with pharyngitis in the appropriate clinical setting. No tonsillar or peritonsillar abscess. Prominent upper cervical lymph nodes are likely reactive. Please note that all CT scans at this facility use dose modulation, iterative reconstruction, and/or weight-based dosing when appropriate to reduce radiation dose to as low as reasonably achievable. Dictated by Dominic Sommer MD @ 12/09/2023 7:51:14 PM (Electronic Signature) Discharge Plan Discharge Clinical Impression: Acute right otitis media Sinusitis, acute maxillary Qualifiers: Recurrence: non-recurrent Qualified Code(s): J01.00 - Acute maxillary sinusitis, unspecified Acute frontal sinusitis Qualifiers: Recurrence: non-recurrent Qualified Code(s): J01.10 - Acute frontal sinusitis, unspecified Fever Qualifiers: Fever type: unspecified Qualified Code(s): R50.9 - Fever, unspecified Acute ethmoidal sinusitis Qualifiers: Recurrence: non-recurrent Qualified Code(s): J01.20 - Acute ethmoidal sinusitis, unspecified Patient Disposition: Admitted As Observation
--- NOTE | 2023-12-09 17:29 | XR_ITS ---
Patient: MICKY FLAHERTY Facility:?[facility] Patient ID:?[id number] Site Patient ID:?[id number]. Site :?1985 Study:?XRay-Chest 1 VIEW PORTABLE-12/09/2023 5:57:13 PM Ordering Physician:TAMIR Final Report: Indication: Cough and fever Technique: Frontal chest Comparison: None Findings: Lungs are symmetrically inflated and clear. Trachea is midline. Cardiac silhouette is normal. Bones and soft tissues are unremarkable. Impression: No acute cardiopulmonary findings. Dictated by Adan Lazo MD @ 12/09/2023 6:22:24 PM Signed by:?Adan Lazo MD @12/09/2023 6:22:24 PM (Electronic Signature)
--- OUTSIDE RECORDS SUMMARY | 2023-12-09 17:38 | XMS_ITS | Clinical Summary ---
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 Name Role Phone Pcp, No Primary Care Provider Unavailabl e Allergies No known active allergies Medications Medication Sig Dispensed Refills Start Date End Date Status RECLIPSEN, 28, 0.15-0.03 mg tabletIndications:Con traception TAKE 1 TABLET BY MOUTH DAILY 84 tablet 0 03/22/2016 Active Active Problems No known active problems Immunizations Name Administration Dates Next Due Human Papilloma Virus Vaccine 02/14/2014, 013,12/30/2011 Td (Age >=7 Years) 11/17/1999 Tdap 12/18/2009 Family History Medical History Relation Name Comments Good Health Father Good Health Mother Diabetes Other GRANDPARENT Heart Disease Other GRANDPARENT Hypertension Other GRANDPARENT Relation Name Status Comments Father Mother Other Social History Tobacco Use Types Packs/Day Years Used Date Smoking Tobacco: Never Smokeless Tobacco: Never Tobacco Cessation:Counseling Given: Yes Alcohol Use Standard Drinks/Week Comments Yes 0 (1 standard drink = 0.6 oz pur e alcohol) rarely Sex and Gender Information Value Date Recorded Sex Assigned at Not on file Gender Identity Not on file Sexual Orientation Not on file Obstetrics History Para Term AB IAB SAB Ectopic Multiple Livin g Live Births 0 0 0 0 0 0 0 0 0 0 Last Filed Vital Signs Vital Sign Reading Time Taken Comments Blood Pressure 120/74 02/20/2015 4:29 PM CDT tow er Pulse 77 02/20/2015 4:29 PM CDT Temperature - - Respiratory Rate - - Oxygen Saturation 99% 02/20/2015 4:29 PM CDT Inhaled Oxygen Concentration - - Weight 60.1 kg (132 lb 9.6 oz) 02/20/2015 4:29 P M CDT Height 151.5 cm (4' 11.65) 02/20/2015 4:29 PM C DT Body Mass Index 26.2 02/20/2015 4:29 PM CDT Plan of Treatment Health Maintenance Due Date Last Done Comments Depression screening for age 12+ 1999 HIV for age 15-65 2002 BMI (ht and wt on same day) for age 18+ 2005 Hepatitis C screening for age 18-79 2005 Tetanus booster 12/19/2019 12/18/2009, 11/17/1999 COVID-19 vaccine series ( season) 2023 Influenza for age 9-49 04/01/2024 Pap test for age 21-65 04/23/2025 , 04/23/2022, 08/26/2017, Additional history exists Tdap Completed 12/18/2009 Pneumococcal series for age 6-64 Aged Out No longer eligible based on patient's age to complete this topic Procedures Procedure Name Priority Date/Time Associated Diagnosis Comments HPV THIN PREP Routine 04/23/2022 2:30 PM CDT from Last 3 Months or Most Recently Relevant to Health Maintenance Results * HPV HIGH RISK (04/23/2022 2:30 PM CDT) TYPE 16 Negative Negative 04/28/2022 2:07 PM CDT [facility] TYPE 18 Negative Negative 04/28/2022 2:07 PM CDT [facility] OTHER HIGH RISK TYPES Negative Negative 04/28/2022 2:07 PM CDT [facility] Other (Cervical) 04/23/2022 2:30 PM CDT 04/27/2022 8:23 AM CDT Narrative [facility] - 04/28/2022 2:07 PM CDT HPV types 16, 18, 31, 33, 35, 39, 45, 51, 52, 56, 58, 59, 66 and 68 DNA were undetectable or below the pre-set threshold. Methodology: [employer] [place] [address]00 HPV Test October Pedro Guillaume PA-C MICROBIOLOGY [facility] 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 PCP - General 07/07/18
[2023-12-09 17:56] LABS: Lactate* 0.9 mmol/L (0.5-1.9)
[2023-12-09 17:58] LABS: Basophils Percent Auto 0.2 % (0.0-3.0); Eosinophils Percent Auto 0.4 % (0.0-7.0); Hematocrit 36.4 % (33.0-51.0); Hemoglobin* 12.1 gm/dL (12.0-16.0); Immature Granulocytes Pct Auto 0.4 %; Lymphocytes Percent Auto 10.3 % (20-44); Mean Corpuscular HGB Conc 33 gm/dL (32-36); Mean Corpuscular Hemoglobin 29 pg (26-34); Mean Corpuscular Volume 87 fL (80-100); Monocytes Percent Auto 8.9 % (0.0-11.0); Neutrophils Percent Auto 79.8 % (42.0-72.0); Platelet Count* 400 K/uL (140-440); RDW Coefficient of Variation % 12.3 % (11.5-15.5); White Blood Count* 13.92 K/uL (4.50-11.00)
[2023-12-09 18:03] LABS: Slide Review Reflex No
[2023-12-09 18:16] LABS: Chloride* 106 mmol/L (96-114); Potassium* 3.2 mmol/L (3.6-5.1); Sodium* 137 mmol/L (135-149)
[2023-12-09 18:19] LABS: Anion Gap 8 mEq/L (7-15); Blood Urea Nitrogen* 10 mg/dL (5-24); Carbon Dioxide* 23 mmol/L (20-32); Creatinine* 0.6 mg/dL (0.5-1.5); Est. Creatinine Clearance* 97.81; Estimated Glomerular Filt Rate 119 ml/min; Glucose* 101 mg/dL (60-115)
[2023-12-09 18:20] LABS: Calcium* 8.8 mg/dL (8.4-10.6)
[2023-12-09 18:22] LABS: Mono Screen* Negative (Negative)
[2023-12-09] MEDS: 0.9 % SODIUM CHLORIDE 1000 ml 1,000 ML 500 ML IV (18:22)
--- NOTE | 2023-12-09 18:24 | CT_ITS ---
Patient: MICKY FLAHERTY Facility:?[facility] Patient ID:?[id number] Site Patient ID:?[id number]. Site :?1985 Study:?CT-Sinus WITHOUT-12/09/2023 7:13:06 PM Ordering Physician:TAMIR Final Report: CLINICAL HISTORY: Fever. Respiratory distress. TECHNIQUE: CT of the paranasal sinuses without contrast. COMPARISON: None. FINDINGS: Anterior sinus group (frontal sinuses and anterior ethmoid air cells/frontoethmoidal recesses: Moderate mucosal thickening right frontal sinus. Near-complete opacification of the right-sided anterior ethmoid air cells from pooled secretions and mucosal thickening. Resulting obstruction of the right- sided frontoethmoidal drainage pathway. Left frontal sinus is well aerated. High-grade mucosal thickening within a left anterior ethmoid air cell. Posterior sinus group (posterior ethmoid air cells and sphenoid sinuses)/sphenoethmoidal recesses: Posterior ethmoid air cells and sphenoid sinuses are well aerated. Sphenoethmoidal drainage pathways are not obstructed. Maxillary sinuses and ostiomeatal complexes: Near-complete opacification of the right maxillary sinus with mucosal thickening/frothy secretions. Right maxillary sinus ostium/infundibular outflow tract/hiatus semilunaris (ostiomeatal unit) is obstructed. Mild left maxillary sinus mucosal thickening. Left maxillary sinus ostium/infundibular outflow tract is obstructed. Turbinates: Right middle turbinate maikel bullosa. Nasal septum: Mild leftward nasal septal deviation and septal spur. Nasal cavity: No obstructive lesions. Skullbase, maxilla, TMJ: Keros type 2 on the left. Keros type 2 on the right. No lytic or blastic osseous lesions. No periapical tooth lucencies. Right-sided mastoid effusion. Orbital contents: Within normal limits. Imaged intracranial contents: Within normal limits. Imaged soft tissues structures: Within normal limits. IMPRESSION: 1. Right-sided ostiomeatal unit pattern of obstructive sinus opacification. Moderate right frontal sinus mucosal thickening, near complete opacification of right-sided ethmoid air cells and near-complete opacification of the right maxillary sinus. 2. Obstruction of the left maxillary sinus ostium/infundibular outflow tract with mild left maxillary sinus mucosal thickening. 3. Mild leftward nasal septal deviation and septal spur. 4. Right-sided mastoid effusion. Nonspecific but usually inflammatory/infectious in etiology. Please note that all CT scans at this facility use dose modulation, iterative reconstruction, and/or weight-based dosing when appropriate to reduce radiation dose to as low as reasonably achievable. Dictated by Dominic Sommer MD @ 12/09/2023 7:48:52 PM Signed by:?Dominic Sommer MD @12/09/2023 7:48:52 PM (Electronic Signature)
--- NOTE | 2023-12-09 18:24 | CT_ITS ---
Patient: MICKY FLAHERTY Facility:?[facility] Patient ID:?[id number] Site Patient ID:?[id number]. Site :?1985 Study:?CT-ST Neck W/ 93CC ISOVUE 370-12/09/2023 7:14:09 PM Ordering Physician:TAMIR Final Report: CLINICAL HISTORY: Fever. TECHNIQUE: CT of the neck with 93 cc of Isovue 370 administered. Multiplanar reformats included. COMPARISON: None. FINDINGS: Mild nasopharyngeal/oropharyngeal mucosal hyperenhancement and submucosal edema. Findings may represent pharyngitis in the appropriate clinical setting. No tonsillar or peritonsillar abscess. Mildly prominent upper cervical lymph nodes, which are likely reactive in etiology. No high-grade airway obstruction. Hypopharynx and larynx are normal. Salivary glands and thyroid gland are normal. Major intracranial vascular structures are patent. No acute osseous abnormalities. Upper lungs are clear. IMPRESSION: 1. Findings compatible with pharyngitis in the appropriate clinical setting. No tonsillar or peritonsillar abscess. Prominent upper cervical lymph nodes are likely reactive. Please note that all CT scans at this facility use dose modulation, iterative reconstruction, and/or weight-based dosing when appropriate to reduce radiation dose to as low as reasonably achievable. Dictated by Dominic Sommer MD @ 12/09/2023 7:51:14 PM Signed by:?Dominic Sommer MD @12/09/2023 7:51:14 PM (Electronic Signature)
[2023-12-09 18:33] LABS: C Reactive Protein* 13.4 mg/dL (0.5-1.0)
[2023-12-09 18:34] LABS: PCR FLU A Negative PCR FLU A (Negative); PCR FLU B Negative PCR FLU B (Negative); SARS PCR* Negative SARS-CoV-2 (Negative)
[2023-12-09] MEDS: dexAMETHasone 10 MG/ML inj IVP (19:51)
[2023-12-09] MEDS: AMPICILLIN/SULBACTAM 3 GM in 0.9 % SODIUM CHLORIDE Mini-bag 100 ML IVPB (19:55)
--- NOTE | 2023-12-09 20:24 | P.IMHP_ITS ---
Hospitalist- H&P: HPI History of Present Illness Date Seen: 12/09/23 Chief complaint: fever, cough, sore throat Narrative: Su Gutierrez is a 38 year old female past medical history rather unremarkable other than for history of gestational diabetes, status post bilateral salpingectomy, , currently not on any prescription medications is admitted to the medical for from the ED for IV antibiotic management of acute obstructive sinusitis, mastoid effusion in the setting of failed outpatient oral antibiotic therapy. Patient is seen with her mother at bedside. Reports a 2 week history of sinus congestion, pressure. Headache fever at the beginning of this which then resolved, returning again this week. Temp of 102? has been the highest at home. Has had headaches. Denies dizziness. Some mild maxillary sinus pressure and right ear fullness. Has had a sore throat. Rapid strep was negative on 12/06. Postnasal drainage causing an irritating, dry cough. Denies chest congestion. Denies chest pain or shortness of breath. Denies abdominal pain. No nausea or vomiting other than when coughing up phlegm. No change in stools. Denies UTI symptoms. Nonsmoker. Occasional alcohol use. Review of Systems Narrative: REVIEW OF SYSTEMS: Complete review of systems performed and negative unless otherwise stated in HPI or below. 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 . Non-smoker Smoking Status: Never smoker How often do you have a drink containing alcohol: never How often do you have six or more drinks on one occasion: Never AUDIT-C Alcohol total score: 0 Non-prescribed substance use: denies use Little interest or pleasure in doing things: not at all Feeling down, depressed, or hopeless: not at all Meds Home Medications and Allergies Home Medications Medication Instructions Recorded Confirmed Type docosahexaenoic acid 200 mg See Rx Instructions PO DAILY 03/17/23 12/07/23 History capsule ( DHA) Allergies Allergy/AdvReac Type Severity Reaction Status Date / Time No Known Allergies Allergy Unknown Verified 12/09/23 19:05 Exam Narrative: Exam Narrative: PHYSICAL EXAM General: Pleasant, conversant, NAD HEENT: Normocephalic, atraumatic, sclera white, EOMI, oral mucosa moist Cardiovascular: RRR, S1S2. No pitting edema Pulmonary: CTA bilaterally without rhonchi, rales, expiratory wheezes. No dyspnea on room air Neurological: Alert, answering questions appropriately, cranial nerves intact, no focal findings Extremities: No gross joint deformity or swelling. AROMI. Neurovascularly intact Skin: Warm, dry. Const: Vital Signs, click to edit/add: Vital Signs - 24 hr 12/09/23 17:18 12/09/23 17:39 12/09/23 18:01 Temperature 98.9 F Pulse Rate [Pulse Oximeter] 120 H 112 H Respiratory Rate 16 Blood Pressure [Ri ght Upper Arm] 143/94 H Pulse Oximetry 97 97 97 Oxygen Delivery Me thod Room Air Room Air 12/09/23 18:41 12/09/23 19:32 Temperature Pulse Rate [Pulse Oximeter] 92 110 H Respiratory Rate Blood Pressure [Ri ght Upper Arm] 142/92 H Pulse Oximetry 97 97 Oxygen Delivery Me thod Room Air Room Air Hospitalist - H&P: Result Labs Labs: Short CBC 12/09/23 Range/Units 17:53 WBC 13.92 H (4.50-11.00) K/uL Hgb 12.1 (12.0-16.0) gm/dL Hct 36.4 (33.0-51.0) % Plt Count 400 (140-440) K/uL BMP 12/09/23 17:53 Sodium 137 Potassium 3.2 L Chloride 106 Carbon Dioxide 23 BUN 10 Creatinine 0.6 Glucose [address] neck: Attestation: I have reviewed the pertinent imaging results. Radiologist's impression: CT of the neck with 93 cc of Isovue 370 administered. Multiplanar reformats included. COMPARISON: None. FINDINGS: Mild nasopharyngeal/oropharyngeal mucosal hyperenhancement and submucosal edema. Findings may represent pharyngitis in the appropriate clinical setting. No tonsillar or peritonsillar abscess. Mildly prominent upper cervical lymph nodes, which are likely reactive in etiology. No high-grade airway obstruction. Hypopharynx and larynx are normal. Salivary glands and thyroid gland are normal. Major intracranial vascular structures are patent. No acute osseous abnormalities. Upper lungs are clear. IMPRESSION: 1. Findings compatible with pharyngitis in the appropriate clinical setting. No tonsillar or peritonsillar abscess. Prominent upper cervical lymph nodes are likely reactive. CT paranasal sinuses: Attestation: I have reviewed the pertinent imaging results. Radiologist's impression: CT of the paranasal sinuses without contrast. COMPARISON: None. FINDINGS: Anterior sinus group (frontal sinuses and anterior ethmoid air c ells/frontoethmoidal recesses: Moderate mucosal thickening right frontal sinus. Near-complete opacification of the right-sided anterior ethmoid air cells from pooled secretions and mucosal thickening. Resulting obstruction of the right- sided frontoethmoidal drainage pathway. Left frontal sinus is well aerated. High-grade mucosal thickening within a left anterior ethmoid air cell. Posterior sinus group (posterior ethmoid air cells and sphenoid sinuses)/sphenoethmoidal recesses: Posterior ethmoid air cells and sphenoid sinuses are well aerated. Sphenoethmoidal drainage pathways are not obstructed. Maxillary sinuses and ostiomeatal complexes: Near-complete opacification of the right maxillary sinus with mucosal thickening/frothy secretions. Right maxillary sinus ostium/infundibular outflow tract/hiatus semilunaris (ostiomeatal unit) is obstructed. Mild left maxillary sinus mucosal thickening. Left maxillary sinus ostium/infundibular outflow tract is obstructed. Turbinates: Right middle turbinate maikel bullosa. Nasal septum: Mild leftward nasal septal deviation and septal spur. Nasal cavity: No obstructive lesions. Skullbase, maxilla, TMJ: Keros type 2 on the left. Keros type 2 on the right. No lytic or blastic osseous lesions. No periapical tooth lucencies. Right-sided mastoid effusion. Orbital contents: Within normal limits. Imaged intracranial contents: Within normal limits. Imaged soft tissues structures: Within normal limits. IMPRESSION: 1. Right-sided ostiomeatal unit pattern of obstructive sinus opacification. Moderate right frontal sinus mucosal thickening, near complete opacification of right-sided ethmoid air cells and near-complete opacification of the right maxillary sinus. 2. Obstruction of the left maxillary sinus ostium/infundibular outflow tract with mild left maxillary sinus mucosal thickening. 3. Mild leftward nasal septal deviation and septal spur. 4. Right-sided mastoid effusion. Nonspecific but usually inflammatory/infectious in etiology. Chest x-ray: Attestation: I have reviewed the pertinent imaging results. Radiologist's impression: Frontal chest Comparison: None Findings: Lungs are symmetrically inflated and clear. Trachea is midline. Cardiac silhouette is normal. Bones and soft tissues are unremarkable. Impression: No acute cardiopulmonary findings. Assessment and Plan Assessment and plan (1) Acute bacterial sinusitis: Problem comment: -Obstructive -Failed outpatient therapy with Augmentin -CT shows moderate mucosal thickening right frontal sinus, near complete opacification of right-sided anterior ethmoid air cells, near complete opacification of the right maxillary sinus, obstruction of the left maxillary sinus outflow tract with mild left maxillary sinus mucosal thickening -Leukocytosis with left shift, report of fever of 102? at home, tachycardic. Lactate WNL 0.9, CRP 13.4 -Received IV Unasyn and dexamethasone in the ED, 1 L IVF -Start IV ceftriaxone and vancomycin to include improved coverage for mastoid effusion -Prednisone 40 mg daily -Ciprodex drops -Pain management, including Tylenol, ibuprofen, oxycodone as needed. Saline nasal spray for postnasal drainage -ED provider discussed with ENT, Dr. Muniz, management as above, including recommendation for UA, ANCA vasculitis labs to rule out Benito's - pending -Consider ENT consult during hospital course if no improvement or outpatient ENT follow-up upon discharge Status: Acute (2) Middle ear effusion: Problem comment: -CT shows right-sided mastoid effusion, inflammatory versus infectious etiology. -Will manage as suspected infectious etiology as above -ENT consult as above Status: Acute (3) Pharyngitis: Problem comment: -CT shows findings compatible with pharyngitis, no tonsillar or peritonsillar abscess. Reactionary lymphadenopathy -Strep test negative on 12/07/2023 -Symptomatic cares Status: Acute (4) Hypokalemia: Problem comment: -Potassium 3.2, recheck in a.m., supplement if necessary Status: Acute (5) Nasal septal spur: Problem comment: -Incidental finding as noted on CT Status: Acute Plan CODE: Full VTE PPX: Ambulatory, SCDs Disposition: Observation Total Time Spent Total Time Spent: Total time spent caring for the patient today was 45 minutes. This includes time spent for the visit reviewing the chart, time spent during the visit, time spent after the visit and documentation and planning in coordination of care.
[2023-12-09] MEDS: cefTRIAXone 1 GM in 0.9 % SODIUM CHLORIDE Mini-bag 100 ML IVPB (21:20)
[2023-12-09] MEDS: 0.9 % SODIUM CHLORIDE 1000 ml 1,000 ML 125 ML IV (21:20)
[2023-12-09] MEDS: CIPROFLOX/DEXAMETH OTIC (nc) 4 DROP EAR-RIGHT (21:27)
[2023-12-09] MEDS: SODIUM CHLORIDE NASAL SPRAY 2 SPRAY NOSTRIL-B (21:27)
[2023-12-09] MEDS: BENZOCAINE/MENTHOL 1 EACH LOZENGE MUCOUS MEM (21:28)
[2023-12-09] MEDS: ACETAMINOPHEN 325 MG TABLET 1000 MG PO (22:09)
[2023-12-09 22:54] LABS: Appearance Urine Clear (Clear); Bilirubin Urine Negative (Negative); Blood Urine 2+ (Negative); Color Urine Yellow (Yellow); Glucose Urine Negative (Negative); Ketones Urine 4+ (Negative); Leukocyte Esterase Urine Negative (Negative); Nitrite Urine Negative (Negative); Protein Urine Trace (Negative)
[2023-12-09 23:03] LABS: Squamous Epithelial Cell Urine Moderate (None-Few); WBC Urine 0-2 (0-5)
[2023-12-10] VITALS (7 sets, daily range): BP systolic 124–138; BP diastolic 69–96; PULSE 60–98; RESP 16–18; TEMP 36.5–37; O2SAT 95–97
--- NOTE | 2023-12-10 06:26 | PC.NURSE ---
Arrived to floor at 2315 via wheelchair. A&O pleasant and cooperative. Afebrile and other VSS. Denies pain. Up at char. Calls appropriately
[2023-12-10 06:40] LABS: Mean Corpuscular HGB Conc 32 gm/dL (32-36); Mean Corpuscular Hemoglobin 29 pg (26-34); Mean Corpuscular Volume 88 fL (80-100); Platelet Count* 369 K/uL (140-440)
[2023-12-10 06:42] LABS: Slide Review Reflex No
[2023-12-10 07:03] LABS: Chloride* 111 mmol/L (96-114); Potassium* 4.1 mmol/L (3.6-5.1); Sodium* 142 mmol/L (135-149)
[2023-12-10 07:06] LABS: Creatinine* 0.5 mg/dL (0.5-1.5); Est. Creatinine Clearance* 111.73; Estimated Glomerular Filt Rate 125 ml/min
[2023-12-10 07:07] LABS: Anion Gap 8 mEq/L (7-15); Blood Urea Nitrogen* 7 mg/dL (5-24); Calcium* 8.3 mg/dL (8.4-10.6); Carbon Dioxide* 23 mmol/L (20-32); Glucose* 110 mg/dL (60-115)
[2023-12-10] MEDS: BENZOCAINE/MENTHOL 1 EACH LOZENGE MUCOUS MEM ×3 (07:22→16:46)
[2023-12-10] MEDS: predniSONE 20 MG TABLET 40 MG PO (07:23)
[2023-12-10] MEDS: IBUPROFEN 400 MG TABLET 600 MG PO ×3 (07:23→17:46)
[2023-12-10] MEDS: 0.9 % SODIUM CHLORIDE 1000 ml 1,000 ML 125 ML IV ×3 (07:23→21:17)
[2023-12-10 07:24] LABS: C Reactive Protein* 12.3 mg/dL (0.5-1.0)
[2023-12-10] MEDS: CIPROFLOX/DEXAMETH OTIC (nc) 4 DROP EAR-RIGHT ×4 (09:23→21:16)
--- NOTE | 2023-12-10 10:44 | P.IMPN_ITS ---
Progress Note: A&P Assessment and plan (1) Acute bacterial sinusitis: Problem details: -Obstructive -Failed outpatient therapy with Augmentin -CT shows moderate mucosal thickening right frontal sinus, near complete opacification of right-sided anterior ethmoid air cells, near complete opacifica tion of the right maxillary sinus, obstruction of the left maxillary sinus outflow tract with mild left maxillary sinus mucosal thickening -Leukocytosis with left shift, report of fever of 102? at home, tachycardic. Lactate WNL 0.9, CRP 13.4 -Received IV Unasyn and dexamethasone in the ED, 1 L IVF -Start IV ceftriaxone and vancomycin to include improved coverage for mastoid effusion -Prednisone 40 mg daily -Ciprodex drops -Pain management, including Tylenol, ibuprofen, oxycodone as needed. Saline nasal spray for postnasal drainage -ED provider discussed with ENT, Dr. Muniz, management as above, including recommendation for UA, ANCA vasculitis labs to rule out Benito's - pending -Consider ENT consult during hospital course if no improvement or outpatient ENT follow-up upon discharge - 12/09 Not much improvement yet. Continue in hospital management with IV ceftriaxone and vancomycin, prednisone, cipro ear drops. WBC and CRP some improvement. May be able to discharge home tomorrow on oral antibiotics and finish course of prednisone with outpatient ENT f/u. UA shows trace protein, 2+ blood, nonspecific for Benito's. ANCA panel pending. Status: Acute (2) Middle ear effusion: Problem details: -CT shows right-sided mastoid effusion, inflammatory versus infectious etiology. -Will manage as suspected infectious etiology as above -ENT consult as above Status: Acute (3) Pharyngitis: Problem details: -CT shows findings compatible with pharyngitis, no tonsillar or peritonsillar abscess. Reactionary lymphadenopathy -Strep test negative on 12/07/2023 -Symptomatic cares Status: Acute (4) Hypokalemia: Problem details: -Potassium 4.1 Status: Resolved (5) Nasal septal spur: Problem details: -Incidental finding as noted on CT Status: Acute Subjective Time Seen by Provider: 08:26 Date Seen: 12/10/23 Interval history: Su feels a little bit better, but notes that is really only because she hasn't had a fever since admission. She still has pressure in her right face and head and a headache and sore throat. Her sister (who is one of our surgical nurses) is in the room with her today. She complains of a persistent dry, hacking cough. Exam Narrative: Exam Narrative: General: No acute distress, but does appear to not feel well. Awake, alert, oriented x3. No pallor. No jaundice. HEENT: Mild tenderness to palpation over the right maxillary sinus, no tenderness to palpation over the right mastoid or just anterior to the right ear. Mildly tender to palpation in the right anterior neck where there is also some shoddy lymphadenopathy. Oropharynx clear, mucous membranes moist. Oropharynx: Clear. Mucous membranes moist. Cardiovascular: Regular rate and rhythm. No murmurs, gallops, or rubs. Respiratory: Clear to auscultation bilaterally. No wheezes or crackles. Abdomen: Bowel sounds present. Soft, nondistended, nontender. Extremities: No pedal edema. Const: Vital Signs, click to edit/add: Vital Signs - 24 hr 12/09/23 17:18 12/09/23 17:39 12/09/23 18:01 Temperature 98.9 F Pulse Rate [Pulse Oximeter] 120 H 112 H Respiratory Rate 16 Blood Pressure [Le ft Arm] Blood Pressure [Ri ght Upper Arm] 143/94 H Pulse Oximetry 97 97 97 Oxygen Delivery Sc thod Room Air Room Air 12/09/23 18:41 12/09/23 19:32 12/09/23 22:36 Temperature 98.1 F Pulse Rate [Pulse Oximeter] 92 110 H 98 Respiratory Rate 16 Blood Pressure [Le ft Arm] 143/84 H Blood Pressure [Ri ght Upper Arm] 142/92 H Pulse Oximetry 97 97 [facility] Room Air 12/09/23 22:51 12/09/23 23:08 12/10/23 03:14 Temperature 98.2 F 97.7 F Pulse Rate [Pulse Oximeter] 91 66 Respiratory Rate 16 16 16 Blood Pressure [Le ft Arm] 137/80 131/83 Blood Pressure [Ri ght Upper Arm] Pulse Oximetry 98 93 97 [facility] Room Air Room Air 12/10/23 07:53 Temperature 98 F Pulse Rate [Pulse Oximeter] 98 Respiratory Rate 16 Blood Pressure [Le ft Arm] 129/85 Blood Pressure [Ri ght Upper Arm] Pulse Oximetry 96 Oxygen Delivery Me thod Room Air Labs Labs: Laboratory Results - last 24 hr 12/09/23 12/09/23 12/09/23 17:34 17:45 17:49 WBC RBC Hgb Hct MCV MCH MCHC RDW Coeff of [place] Plt Count Neut % (Auto) Lymph % (Auto) [place] % (Auto) Eos % (Auto) Baso % (Auto) Neut # (Auto) Lymph # (Auto) [place] # (Auto) Eos # (Auto) Baso # (Auto) Abs Immat Gran (auto) Imm/Tot Granulo (auto) Sodium Potassium Chloride Carbon Dioxide Anion Gap BUN Creatinine Estimated Creat Clear Estimated GFR Glucose Lactate Calcium C-Reactive Protein Urine Color Urine Appearance Urine pH Ur Specific [place] Urine Protein Urine Glucose (UA) Urine Ketones Urine Blood Urine Nitrite Urine Bilirubin Urine Urobilinogen Ur Leukocyte Esterase Urine RBC Urine WBC Ur Squamous Epith Cells Urine Bacteria SARS-CoV-2 (PCR) Monoscreen Negative Influenza Type A (PCR) Influenza Type B (PCR) Lab Acknowledgement Test Added Test Added 12/09/23 12/09/23 12/10/23 17:53 22:43 06:12 WBC 13.92 H 11.00 RBC 4.20 4.20 Hgb 12.1 12.0 Hct 36.4 37.0 MCV 87 88 MCH 29 29 MCHC 33 32 RDW Coeff of [place] 12.3 Plt Count 400 369 Neut % (Auto) 79.8 H Lymph % (Auto) 10.3 L [place] % (Auto) 8.9 Eos % (Auto) 0.4 Baso % (Auto) 0.2 Neut # (Auto) 11.10 H Lymph # (Auto) 1.40 [place] # (Auto) 1.20 H Eos # (Auto) 0.10 Baso # (Auto) 0.00 Abs Immat Gran (auto) 0.10 Imm/Tot Granulo (auto) 0.4 Sodium 137 142 Potassium 3.2 L 4.1 Chloride 106 111 Carbon Dioxide 23 23 Anion Gap 8 8 BUN 10 7 Creatinine 0.6 0.5 Estimated Creat Clear 97.81 111.73 Estimated GFR 119 125 Glucose 101 110 Lactate 0.9 Calcium 8.8 8.3 L C-Reactive Protein 13.4 H 12.3 H Urine Color Yellow Urine Appearance Clear Urine pH 6.0 Ur Specific [place] 1.010 Urine Protein Trace A Urine Glucose (UA) Negative Urine Ketones 4+ A Urine Blood 2+ A Urine Nitrite Negative Urine Bilirubin Negative Urine Urobilinogen 1.0 Ur Leukocyte Esterase Negative Urine RBC 10-25 A Urine WBC 0-2 Ur Squamous Epith Cells Moderate A Urine Bacteria None SARS-CoV-2 (PCR) Negative SARS-CoV-2 Monoscreen Influenza Type A (PCR) Negative PCR FLU A Influenza Type B (PCR) Negative PCR FLU B Lab Acknowledgement
--- NOTE | 2023-12-10 14:10 | PC.NURSE ---
Shift Summary: Patient pleasant and cooperative. Up independently, vitals stable and WNL. C/o headache this morning, relief with scheduled medication. Tolerating regular diet, denies nausea.
[2023-12-10] MEDS: levoFLOXacin 750 MG TABLET PO (16:46)
[2023-12-10] MEDS: OXYCODONE 5 MG TABLET PO (21:24)
[2023-12-10] MEDS: SODIUM CHLORIDE 0.9 % (FLUSH) 10 ML SYRINGE 5 ML IVF (21:25)
--- NOTE | 2023-12-10 23:30 | PC.NURSE ---
End of Shift: Pt pleasant and cooperative throughout shift. Reports pain at 3/10 headache, improved with scheduled ibuprofen and prn oxycodone. IV difficult to flush, pump alarming, new IV attempted and failed. Previous IV repositioned and flushed by smokehouse worker, Raudel. Flushing well, tolerating IV fluids well. Pt independent in room, tolerating regular diet well. MRSA swab obtained and sent to lab. Family visited today, pt in good spirits.
[2023-12-11] MEDS: 0.9 % SODIUM CHLORIDE 1000 ml 1,000 ML 125 ML IV (05:08)
[2023-12-11 06:16] LABS: Hematocrit 33.1 % (33.0-51.0); Hemoglobin* 10.9 gm/dL (12.0-16.0); Mean Corpuscular HGB Conc 33 gm/dL (32-36); Mean Corpuscular Hemoglobin 29 pg (26-34); Mean Corpuscular Volume 89 fL (80-100); Platelet Count* 349 K/uL (140-440); Red Blood Count 3.74 m/uL (4.00-5.20); Slide Review Reflex No; White Blood Count* 9.58 K/uL (4.50-11.00)
--- NOTE | 2023-12-11 06:28 | PC.NURSE ---
End of shift [id number]: A&O pleasant and cooperative. VSS, afebrile. Denies pain. Reported cough has gotten better overnight. Using call light appropriately.? ?
[2023-12-11 06:38] LABS: Chloride* 115 mmol/L (96-114); Potassium* 3.6 mmol/L (3.6-5.1); Sodium* 140 mmol/L (135-149)
[2023-12-11 06:41] LABS: Creatinine* 0.5 mg/dL (0.5-1.5); Est. Creatinine Clearance* 111.73; Estimated Glomerular Filt Rate 125 ml/min
[2023-12-11] MEDS: BENZOCAINE/MENTHOL 1 EACH LOZENGE MUCOUS MEM ×2 (06:41→15:09)
[2023-12-11 06:42] LABS: Anion Gap -1 mEq/L (7-15); Blood Urea Nitrogen* 9 mg/dL (5-24); Calcium* 8.3 mg/dL (8.4-10.6); Carbon Dioxide* 26 mmol/L (20-32); Glucose* 95 mg/dL (60-115)
[2023-12-11 06:45] LABS: C Reactive Protein* 3.1 mg/dL (0.5-1.0)
[2023-12-11] MEDS: predniSONE 20 MG TABLET 40 MG PO (07:50)
[2023-12-11] MEDS: IBUPROFEN 400 MG TABLET 600 MG PO ×2 (07:50→11:57)
[2023-12-11 07:59] VITALS: BP 131/85; PULSE 65; RESP 16; TEMP 36.4; O2SAT 96
[2023-12-11] MEDS: CIPROFLOX/DEXAMETH OTIC (nc) 4 DROP EAR-RIGHT ×2 (09:09→13:23)
--- NOTE | 2023-12-11 10:23 | P.DS_ITS ---
DS: Providers Provider Time Seen by Provider: 07:40 Date Seen: 12/11/23 Date of admission: 12/09/23 20:08 Primary care physician: Not a Local Provider Admitting Clinician: Analilia Arango MD Attending Physician on discharge: Caty Jamil MD Date of Discharge: 12/11/23 DS: Diagnosis Discharge Diagnosis (1) Acute bacterial sinusitis: Status: Acute Problem details: -Obstructive -Failed outpatient therapy with Augmentin -CT shows moderate mucosal thickening right frontal sinus, near complete opacification of right-sided anterior ethmoid air cells, near complete opacification of the right maxillary sinus, obstruction of the left maxillary sinus outflow tract with mild left maxillary sinus mucosal thickening -Leukocytosis with left shift, report of fever of 102? at home, tachycardic. Lactate WNL 0.9, CRP 13.4 -Received IV Unasyn and dexamethasone in the ED, 1 L IVF -Start IV ceftriaxone and vancomycin to include improved coverage for mastoid effusion -Prednisone 40 mg daily -Ciprodex drops -Pain management, including Tylenol, ibuprofen, oxycodone as needed. Saline nasal spray for postnasal drainage -ED provider discussed with ENT, Dr. Muniz, management as above, including recommendation for UA, ANCA vasculitis labs to rule out Benito's - pending -Consider ENT consult during hospital course if no improvement or outpatient ENT follow-up upon discharge - 12/09 Not much improvement yet. Continue in hospital management with levofloxacin (to cover pseudomonas) and vancomycin, prednisone, cipro ear drops. MRSA screen ordered. WBC and CRP some improvement. May be able to discharge home tomorrow on oral antibiotics and finish course of prednisone with outpatient ENT f/u. UA shows trace protein, 2+ blood, nonspecific for Benito's. ANCA panel pending. - 12/10 Some improvement, cough less frequent, decreased feeling of fullness, afebrile. MRSA swab negative. Discharged on levofloxacin, f/u with Dr. Claude Cee. (2) Middle ear effusion: Status: Acute Problem details: -CT shows right-sided mastoid effusion, inflammatory versus infectious etiology. -Will manage as suspected infectious etiology as above -ENT consult as above (3) Pharyngitis: Status: Acute Problem details: -CT shows findings compatible with pharyngitis, no tonsillar or peritonsillar abscess. Reactionary lymphadenopathy -Strep test negative on 12/07/2023 -Symptomatic cares (4) Nasal septal spur: Status: Acute Problem details: -Incidental finding as noted on CT (5) Hypokalemia: Status: Resolved DS: Summary Hospital Course Hospital Course: This is a fairly healthy 38-year-old female who is not on any prescription medications who had several weeks of upper respiratory symptoms, including sinus congestion and pressure and then developed fevers for which she went to an urgent care. Rapid strep was negative on 12/06. She was started on Augmentin min took 5 doses with some improvement at 1st, but then return of fevers. She has a lso been having headaches. She presented to the emergency department [place] sinuses and neck showed acute bacterial sinusitis with near complete opacification of right-sided anterior ethmoid cells and near complete opacification of right maxillary sinuses, obstruction of the left maxillary sinus outflow tract with mild left maxillary sinus mucosal thickening, pharyngitis, no tonsillar or peritonsillar abscess, reactionary lymphadenopathy. The ER provider spoke with Dr. Muniz who suggested treating with IV antibiotics in the hospital, steroids, and doing a UA and ANCA vasculitis labs to rule out Bills's vasculitis. UA shows trace protein and 2+ blood, Anca titers are pending, as they are send out labs. The patient has made improvement for the last 2 nights and has remained afebrile. Cough and feeling of fullness have improved. Please see above for further details. Discharging home on levofloxacin today with follow-up with ENT as an outpatient. Time Spent with Patient Time attestation: Total time spent providing and/or coordinating discharge services: Exam Narrative: Exam Narrative: General: No acute distress. Awake, alert, oriented. No pallor. No jaundice. Cardiovascular: Regular rate and rhythm. No murmurs, gallops, or rubs. Respiratory: Clear to auscultation bilaterally. No wheezes or crackles. Abdomen: Bowel sounds present. Soft, nondistended, nontender. Extremities: No pedal edema. Const: Vital Signs, click to edit/add: Vital Signs - 24 hr 12/10/23 11:50 12/10/23 15:00 12/10/23 15:00 Temperature 98.6 F 98.3 F Pulse Rate [Pulse Oximeter] 69 69 60 Respiratory Rate 16 16 16 Blood Pressure [Le ft Arm] 136/70 124/74 Pulse Oximetry 97 95 Oxygen Delivery Me thod Room Air Room Air 12/10/23 17:46 12/10/23 19:00 12/10/23 23:39 Temperature 98 F 98 F 98.0 F Pulse Rate [Pulse Oximeter] 62 61 Respiratory Rate 16 18 Blood Pressure [Le ft Arm] 138/96 H 125/69 Pulse Oximetry 96 95 Oxygen Delivery Me thod Room Air Room Air 12/11/23 07:59 Temperature 97.6 F Pulse Rate [Pulse Oximeter] 65 Respiratory Rate 16 Blood Pressure [Le ft Arm] 131/85 Pulse Oximetry 96 Oxygen Delivery Me thod Room Air DS: Data Data Completed and Pending Labs on day of discharge: Labs from last 24 hours 12/11/23 05:47 WBC 9.58 RBC 3.74 L Hgb 10.9 L Hct 33.1 MCV 89 MCH 29 MCHC 33 Plt Count 349 Sodium 140 Potassium 3.6 Chloride 115 H Carbon Dioxide 26 Anion Gap -1 L BUN 9 Creatinine 0.5 Estimated Creat Clear 111.73 Estimated GFR 125 Glucose 95 Calcium 8.3 L C-Reactive Protein 3.1 H Preliminary micro results at discharge 12/09/23 20:55 Blood Culture - Preliminary Blood NO GROWTH AFTER 24 HOURS 12/09/23 20:45 Blood Culture - Preliminary Blood NO GROWTH AFTER 24 HOURS MRSA screen negative. Discharge Plan Discharge Disposition: Home, Self-Care Date of Admission: 12/09/23 20:08 Attending Provider on Discharge: Caty Jamil Primary Care Provider: Provider,Not a Local Condition: Improved Anticipated Discharge Date/Time: 12/11/23 16:00 Discharge Medications: New prednisone 20 mg Tablet 40 mg PO DAILYWM 2 Days Qty: 4 0RF levofloxacin 750 mg Tablet 750 mg PO Q24H 9 Days Qty: 9 0RF ciprofloxacin-dexamethasone 0.3-0.1 % Drops,Suspension 4 drp Otic (ear-right) QID 10 Days Qty: 7.5 0RF codeine-guaifenesin 10-100 mg/5 mL liquid 5 - 10 ml PO Q6H PRNQty: 120 0RF Continued Prenatabs FA 29-1 mg tablet 1 tab PO DAILY Discontinued amoxicillin-pot clavulanate 875-125 mg tablet 1 tab PO BID 5 Days Qty: 10 0RF Discharge Orders: Discharge Order (Routine); Ordered 12/11/23 Ordered By: Hunter Roblero Patient Education: Prednisone (By mouth), Antitussives (By mouth), Levofloxacin (By mouth), Ciprofloxacin/Dexamethasone (Into the ear) Additional Instructions: Do not drink alcohol or drive while taking codeine. F/u with ENT (Claude'Andreia) later this week. Activity Level: No Restrictions Discharge Diet: Regular Follow Up Appointments: Petty Uribe CNP [Nurse Practitioner] - Provider,Not a Local [Primary Care Provider] - Forms: [facility] Info Instructions
[2023-12-11 10:53] VITALS: BP 136/81; PULSE 78; RESP 16; TEMP 36.8; O2SAT 96
[2023-12-11 15:12] VITALS: BP 138/71; PULSE 84; RESP 16; TEMP 36.9; O2SAT 95
[2023-12-11] MEDS: levoFLOXacin 750 MG TABLET PO (16:02)
--- NOTE | 2023-12-11 16:45 | PC.NURSE ---
Discharge: Patient independent, no c/o pain or headache today. Tolerating regular diet. vitals stable and WNL, afebrile. IV removed with catheter intact. Discharge instructions given and told to make follow up.Patient discharged @ 1646, ambulated to car.
[2023-12-15 11:26] LABS: ANCA IFA Pattern None Detected (None Detected); ANCA IFA Titer <1:20 (<1:20); Myeloperoxidase (MPO) Ab, IgG 0 AU/mL (0-19); Serine Proteinase 3 Ab IgG 0 AU/mL (0-19)
== END 2023-12-11 16:46 | disposition home or self-care (01) ==
LOC: ED 19:59 → MEDSURG 20:09
PROVIDERS: Admitting Provider Family Medicine; Emergency Provider Family Medicine; Visit Provider Physician Assistant
DX: J01.10 Acute frontal sinusitis, unspecified (principal); J01.00 Acute maxillary sinusitis, unspecified; J01.20 Acute ethmoidal sinusitis, unspecified; H66.91 Otitis media, unspecified, right ear; B96.89 Other specified bacterial agents as the cause of diseases classified elsewhere; H74.8X1 Other specified disorders of right middle ear and mastoid; D72.829 Elevated white blood cell count, unspecified; J34.89 Other specified disorders of nose and nasal sinuses; R50.9 Fever, unspecified; J02.9 Acute pharyngitis, unspecified; R05.9 Cough, unspecified; R59.0 Localized enlarged lymph nodes; E87.6 Hypokalemia; Z86.32 Personal history of gestational diabetes; Z90.79 Acquired absence of other genital organ(s); Z90.722 Acquired absence of ovaries, bilateral; Z98.891 History of uterine scar from previous surgery
CPT/HCPCS: 36415; 70486; 70491; 71045; 80048; 81001; 83036; 83516; 83605; 85025; 85027; 86140; 86308; 87040; 87081; 87631; 94761; 96361; 96365; 96366; 96367; 96375; 99284; 99285; A9270; G0378; J0295; J0696; J1100; J3370; J7030; J7050; J7512; Q9967